=== PATIENT | female | born 1995 | race Caucasian/White ===

== ENCOUNTER 2016-09-21 17:12 | Emergency (ER) | payer MEDICAID ==
[~2016-09-21] VITALS: Ht 165.1 cm; Wt 72.0 kg
[2016-09-21 17:17] VITALS: BP 118/83
[2016-09-21 17:54] LABS: CLARITY URINE CLEAR (CLEAR); COLOR URINE YELLOW (YELLOW); GLUCOSE URINE NEGATIVE (NEGATIVE); KETONES URINE NEGATIVE (NEGATIVE); LEUKOCYTE ESTERASE URINE NEGATIVE (NEGATIVE); NITRITE URINE NEGATIVE (NEGATIVE); OCCULT BLOOD URINE NEGATIVE (NEGATIVE); PROTEIN URINE NEGATIVE (NEGATIVE); SPECIFIC GRAVITY URINE 1.004 (1.005-1.030); UROBILINOGEN URINE 0.2 E.U./dL (0.2-1.0)
== END 2016-09-21 18:08 | disposition home or self-care (01) ==
LOC: ER 17:17
DX: R31.9 Hematuria, unspecified (principal)
CPT/HCPCS: 81003; 81025; 99283

== ENCOUNTER 2019-10-06 08:53 | Emergency (ER) | payer MEDICAID ==
[~2019-10-06] VITALS: Ht 154.9 cm; Wt 82.0 kg
[2019-10-06 10:15] LABS: BASOPHILS % 1.1 % (0.0-2.0); EOSINOPHILS % 1.9 % (0.0-5.0); HEMATOCRIT. 38.4 % (36.0-48.0); HEMOGLOBIN. 12.7 g/dL (12.0-16.0); LYMPHOCYTES % 28.7 % (20.0-50.0); MEAN CORPUSCULAR HEMOGLOBIN 25.8 pg (28.0-32.0); MEAN CORPUSCULAR VOLUME 78.1 fL (81.0-99.0); MEAN PLATELET VOLUME 9.1 fl (7.4-10.4); MONOCYTES % 5.1 % (2.0-8.0); NEUTROPHILS % 63.2 % (40.0-76.0); PLATELET 347 x1000/uL (130-400); RED BLOOD CELL COUNT 4.92 mill/uL (4.2-5.4); RED CELL DISTRIBUTION WIDTH 15.9 % (11.6-14.6)
[2019-10-06 10:22] LABS: CHLORIDE 110 mEq/L (98-107)
[2019-10-06 10:25] LABS: CLARITY URINE CLEAR (CLEAR); COLOR URINE YELLOW (YELLOW); KETONES URINE NEGATIVE (NEGATIVE); LEUKOCYTE ESTERASE URINE 2+ (NEGATIVE); NITRITE URINE NEGATIVE (NEGATIVE); OCCULT BLOOD URINE 3+ (NEGATIVE); PROTEIN URINE NEGATIVE (NEGATIVE); SPECIFIC GRAVITY URINE 1.008 (1.005-1.030); UROBILINOGEN URINE 0.2 E.U./dL (0.2-1.0)
[2019-10-06 10:46] LABS: B-HCG QUANTITATIVE 1330 mIU/mL (<3)
[2019-10-06] MEDS ORDERED: NITROFURANTOIN 100MG M/M CAPSULE PO ONE (11:15)
[2019-10-06 12:29] VITALS: BP 116/61
== END 2019-10-06 12:32 | disposition home or self-care (01) ==
LOC: ER 08:53
DX: O20.0 Threatened abortion (principal); O99.611 Diseases of the digestive system complicating pregnancy, first trimester; N30.00 Acute cystitis without hematuria; Z3A.01 Less than 8 weeks gestation of pregnancy
CPT/HCPCS: 36415; 76801; 80053; 81003; 81025; 84702; 85025; 86850; 86900; 99284

== ENCOUNTER 2021-10-13 07:30 | Inpatient (IN) | payer MEDICAID ==
[~2021-10-13] VITALS: Ht 154.9 cm; Wt 97.1 kg
[2021-10-13] MEDS ORDERED: LACTATED RINGERS 1,000 ML IV SCH ×2 (10:15→11:30)
[2021-10-13] MEDS ORDERED: METHYLERGONOVINE MALEATE 0.2 MG/ML IM PRN (10:15)
[2021-10-13] MEDS ORDERED: MISOPROSTOL 100MCG TABLET VG PRN (10:15)
[2021-10-13] MEDS ORDERED: DEXT 5%/LR + PITOCIN 20UNITS/L 1,000 ML IV SCH (10:15)
[2021-10-13] MEDS ORDERED: CITRIC ACID/SODIUM CITRATE SOLN 30ML UDC PO NR (10:30)
[2021-10-13 11:45] LABS: INR 0.9; PARTIAL THROMBOPLASTIN TIME 26.8 sec (23.4-31.0); PROTHROMBIN TIME 9.9 sec (9.6-11.0)
[2021-10-13 12:08] LABS: CLARITY URINE CLOUDY (CLEAR); COLOR URINE YELLOW (YELLOW); KETONES URINE NEGATIVE (NEGATIVE); LEUKOCYTE ESTERASE URINE 2+ (NEGATIVE); NITRITE URINE NEGATIVE (NEGATIVE); OCCULT BLOOD URINE NEGATIVE (NEGATIVE); PROTEIN URINE TRACE (NEGATIVE)
[2021-10-13 12:31] LABS: BASOPHILS % 0.5 % (0.0-2.0); EOSINOPHILS % 0.3 % (0.0-5.0); HEMATOCRIT. 34.8 % (36.0-48.0); HEMOGLOBIN. 11.5 g/dL (12.0-16.0); LYMPHOCYTES % 21.3 % (20.0-50.0); MEAN CORPUSCULAR HEMOGLOBIN 25.5 pg (28.0-32.0); MEAN CORPUSCULAR VOLUME 77.3 fL (81.0-99.0); MEAN PLATELET VOLUME 9.9 fl (7.4-10.4); NEUTROPHILS % 73.9 % (40.0-76.0); PLATELET 297 x1000/uL (130-400); RED BLOOD CELL COUNT 4.51 mill/uL (4.2-5.4); RED CELL DISTRIBUTION WIDTH 15.7 % (11.6-14.6)
[2021-10-13 12:39] LABS: *BENZODIAZEPINES SCREEN URINE NEGATIVE (NEGATIVE); *COCAINE SCREEN URINE NEGATIVE (NEGATIVE)
[2021-10-13 12:40] LABS: *AMPHETAMINES SCREEN URINE NEGATIVE (NEGATIVE); *BARBITURATES SCREEN URINE NEGATIVE (NEGATIVE); CANNABINOID URINE SCREEN NEGATIVE (NEGATIVE); METHADONE URINE SCREEN NEGATIVE (NEGATIVE); OPIATES URINE SCREEN NEGATIVE (NEGATIVE); PHENCYCLIDINE URINE SCREEN NEGATIVE (NEGATIVE)
[2021-10-13 13:09] LABS: HEPATITIS B SURFACE ANTIGEN NEGATIVE
[2021-10-13] MEDS ORDERED: PHENYLEPHRINE HCL 10 MG/ML 1ML (IV VIAL) IV ONE (14:08)
[2021-10-13] MEDS ORDERED: FENTANYL CITRATE/PF 50MCG/ML 2ML VIAL ONE (14:08)
[2021-10-13] MEDS ORDERED: DIPHENHYDRAMINE 50MG/ML VIAL ONE (14:09)
[2021-10-13] MEDS ORDERED: CEFAZOLIN SODIUM 1000MG/VIAL ONE (14:09)
[2021-10-13] MEDS ORDERED: EPHEDRINE SULFATE 50MG/ML VIAL ONE (14:09)
[2021-10-13] MEDS ORDERED: OXYTOCIN 10 UNITS/ML 1ML ONE ×2 (14:09→18:08)
[2021-10-13] MEDS ORDERED: ONDANSETRON HCL 4MG/2ML INJ ONE (14:09)
[2021-10-13] MEDS ORDERED: MORPHINE SULFATE/PF 1MG/ML 10ML AMP ONE (14:09)
[2021-10-13] MEDS ORDERED: SODIUM CHLORIDE 0.9% 10ML VIAL ONE (14:11)
[2021-10-13] MEDS ORDERED: KETOROLAC 60MG/2ML VIAL IM ONE (18:03)
[2021-10-13] MEDS ORDERED: METOCLOPRAMIDE HCL 10MG/2ML VIAL ONE (18:03)
[2021-10-13] MEDS ORDERED: RHO(D) IMMUNE GLOBULIN 300 MCG/SYR IM PRN (18:15)
[2021-10-13] MEDS ORDERED: IBUPROFEN 800MG TABLET PO PRN (18:15)
[2021-10-13] MEDS ORDERED: DEXT 5%/LACTATED RINGERS 1,000 ML IV SCH (18:15)
[2021-10-13] MEDS ORDERED: DIPHENHYDRAMINE 25MG CAPSULE PO PRN (18:15)
[2021-10-13] MEDS ORDERED: IBUPROFEN 400MG TABLET PO PRN (18:15)
[2021-10-13] MEDS ORDERED: ONDANSETRON HCL 4MG/2ML INJ IV PRN (18:15)
[2021-10-13] MEDS ORDERED: OXYCODONE HCL/ACETAMINOPHEN 5/325MG TABLET PO PRN (18:15)
[2021-10-13] MEDS ORDERED: HEMORRHOIDAL SUPP PR PRN (18:15)
[2021-10-13] MEDS ORDERED: BISACODYL 10MG SUPP PR PRN (18:15)
[2021-10-13] MEDS ORDERED: LANOLIN OINT 7GM TUBE TOP PRN (18:15)
[2021-10-13] MEDS ORDERED: BUTORPHANOL TARTRATE 2 MG/ML VIAL IV PRN (19:00)
[2021-10-13] MEDS ORDERED: DIPHENHYDRAMINE 50MG/ML VIAL IV PRN (19:00)
[2021-10-13] MEDS ORDERED: NALOXONE HCL 0.4 MG/ML 1ML VIAL IV PRN (19:00)
[2021-10-13 20:50] VITALS: BP 102/56
[2021-10-13 21:30] VITALS: BP 106/54
[2021-10-13] MEDS: MAGNESIUM/ALUMINUM HYDROXIDE/SIMETHICONE 30ML UDC PO SCH (22:03)
[2021-10-13] MEDS: DOCUSATE SODIUM 100MG CAPSULE PO SCH (22:03)
[2021-10-13] MEDS: DEXT 5%/LR + PITOCIN 20UNITS/L 1,000 ML IV SCH (22:04)
[2021-10-13] MEDS: SIMETHICONE 80MG TABLET CHEW PO SCH (22:04)
[2021-10-13] MEDS: KETOROLAC 30MG/ML VIAL IV SCH (22:15)
[2021-10-14] VITALS: BP 105/59
[2021-10-14 04:00] VITALS: BP 106/62
[2021-10-14] MEDS: KETOROLAC 30MG/ML VIAL IV SCH (05:03)
[2021-10-14] MEDS: DEXT 5%/LR + PITOCIN 20UNITS/L 1,000 ML IV SCH (06:14)
[2021-10-14 07:05] LABS: BASOPHILS % 0.3 % (0.0-2.0); EOSINOPHILS % 0.1 % (0.0-5.0); HEMATOCRIT. 26.7 % (36.0-48.0); HEMOGLOBIN. 9.1 g/dL (12.0-16.0); LYMPHOCYTES % 19.6 % (20.0-50.0); MEAN CORPUSCULAR HEMOGLOBIN 26.6 pg (28.0-32.0); MEAN CORPUSCULAR VOLUME 78.2 fL (81.0-99.0); MEAN PLATELET VOLUME 9.2 fl (7.4-10.4); MONOCYTES % 5.7 % (2.0-8.0); NEUTROPHILS % 74.3 % (40.0-76.0); PLATELET 226 x1000/uL (130-400); RED BLOOD CELL COUNT 3.42 mill/uL (4.2-5.4); RED CELL DISTRIBUTION WIDTH 15.6 % (11.6-14.6)
[2021-10-14 08:00] VITALS: BP 99/56
[2021-10-14] MEDS ORDERED: PRENATAL VIT/FE FUMARATE/FA TABLET PO SCH (09:00)
[2021-10-14 12:00] VITALS: BP 98/51
[2021-10-14] MEDS: MAGNESIUM/ALUMINUM HYDROXIDE/SIMETHICONE 30ML UDC PO SCH ×3 (12:35→21:17)
[2021-10-14] MEDS: SIMETHICONE 80MG TABLET CHEW PO SCH ×3 (12:35→21:17)
[2021-10-14] MEDS: FERROUS SULFATE 325MG TABLET PO SCH ×2 (12:35→17:40)
[2021-10-14 15:59] VITALS: BP 107/57
[2021-10-14 19:30] VITALS: BP 99/63
[2021-10-14] MEDS: DOCUSATE SODIUM 100MG CAPSULE PO SCH (21:17)
[2021-10-15 04:00] VITALS: BP 95/55
[2021-10-15] MEDS: FERROUS SULFATE 325MG TABLET PO SCH ×2 (07:49→13:27)
[2021-10-15] MEDS: MAGNESIUM/ALUMINUM HYDROXIDE/SIMETHICONE 30ML UDC PO SCH ×2 (07:49→13:28)
[2021-10-15] MEDS: SIMETHICONE 80MG TABLET CHEW PO SCH ×2 (07:49→13:28)
[2021-10-15 08:00] VITALS: BP 104/57
[2021-10-15] MEDS ORDERED: PREN1TAB26 MT (09:10)
[2021-10-15] MEDS ORDERED: FERR-63 PO (09:10)
[2021-10-15] MEDS ORDERED: IBUP-2030 PO (09:10)
== END 2021-10-15 14:45 | disposition home or self-care (01) | DRG 540 ==
LOC: 8 EST LDRP 07:30 → OBSVTOIN 07:31 → 8EST 21:07
PROVIDERS: ADMIT Obstetrics & Gynecology; ATTEND Obstetrics & Gynecology
PROC: 10D00Z1 Extraction of Products of Conception, Low, Open Approach (ICD-10-PCS; principal; 2021-10-13)
DX: O32.1XX0 Maternal care for breech presentation, not applicable or unspecified (principal); O99.214 Obesity complicating childbirth; O90.81 Anemia of the puerperium; Z20.822 Contact with and (suspected) exposure to COVID-19; Z3A.39 39 weeks gestation of pregnancy; Z37.0 Single live birth
CPT/HCPCS: 36415; 76805; 76818; 80305; 81003; 85025; 86592; 86703; 86762; 86850; 86900; 87340; 87426; 88307; 99281; G0378; J0690; J1200; J1885; J2274; J2370; J2405; J2590; J2765; J3010; J3490; J7120